=== PATIENT | female | born 1940 | race Caucasian/White ===

== ENCOUNTER → 2024-05-07 08:06 | Outpatient (REF) | payer MEDICARE, SELFPAY | LOC: RCS 08:06 | PROVIDERS: ATTENDING PHYSICIAN Internal Medicine Cardiovascular Disease; FAMILY PHYSICIAN Nurse Practitioner Adult Health | DX: I35.1 Nonrheumatic aortic (valve) insufficiency (principal) | CPT/HCPCS: 93306 ==

== ENCOUNTER 2025-01-02 08:06 | Emergency (ER) | payer MEDICARE, SELFPAY ==
[2025-01-02 08:08] VITALS: BP 167/89
[2025-01-02 08:18] VITALS: BP 140/126
--- NOTE | 2025-01-02 08:53 | ED.GENMED ---
History of Present Illness
General
Chief Complaint: Cardiac Symptoms
Source: patient and records
Exam Limitations: none
Time Seen by Provider: 01/02/25 08:13
Nursing documentation reviewed up to this point in time: agreed with
History of Present Illness
History of Present Illness:
84-year-old female history of CAD status post bypass surgery about 10 years ago permanent pacemaker, presents with left arm pain intermittent for few days somewhat relieved with Tylenol possibly related to doing some gardening, also some right arm
pain this morning, no pain currently no chest pain no shortness of breath did have some pain into her left shoulder and scapula
Has had palpitations a few days ago she did have her pacemaker interrogated by her retort condenser attendant that she was told there was no arrhythmia
Past History
Past History
ED Past Medical History: CAD and Hypercholesterolemia
ED Past Surgical History: Cardiac
Social History
Tobacco: Non-smoker
Alcohol: None
Drug: None
Living: with family
Employment: Employed
Review of Systems
Review of Systems
All Other Systems: Not applicable
Constitutional: Denies fever or fatigue
EENT: Reports no symptoms
Respiratory: Denies cough or trouble breathing
Cardiac: Reports other (Left and right arm pain); Denies chest pain
ABD/GI: Reports no symptoms
: Reports no symptoms
Phy Exam
Physical Exam
Physical Exam:
Physical Exam
General: no apparent distress, not acutely ill
Neck: No jaundice
Heart: s1/s2 regular rate and rhythm, no murmur. equal radial pulses.
Lungs: no acute respiratory distress. clear bilaterally
Abdomen: Nontender
Neuro: alert and oriented. no focal neurological deficits
Skin: no rash
Psychiatric: well kept. interactive and cooperative
Extremities: no edema. no calf tenderness.
Scores
Heart Score for Chest Pain Patients
STEMI patient?: No
History: Slightly or Non-Suspicious
ECG: Nonspecific Repolarization
Age: >/= 65 years
Risk Factors: >/= 3 Risk Factors or History of CAD
Troponin: </= Normal Limit
Heart Score for Chest Pain Patients: 5
Heart Score Risk: 20.3% MACE over next 6 weeks
Course
Orders/Labs/Results
Orders:
Orders
01/02/25 08:11
Electrocardiogram (*1) Urgent
Reason for Study: Bradycardia / Tachycardia
EKG- Treatment ONCE
01/02/25 08:37
CR Chest - 2 Views Urgent
Comment:
Reason For Exam: cad arm pain
01/02/25 08:48
Complete Blood Count/With Diff Urgent
Comprehensive Metabolic Panel Urgent
Lipase Urgent
Magnesium Urgent
NT-proBNP Urgent
Troponin I Urgent
01/02/25 11:15
EKG [Electrocardiogram (*1)] Urgent
Reason for Study: Chest Pain
EKG- Treatment ONCE
01/02/25 11:17
Lipid Profile [Cardiovascular Evaluation] Urgent
TSH Urgent
Troponin I Urgent
Abnormal Lab Results
01/02/25
08:48
Monocytes % 10.9 H %
(1.7-9.3)
Chloride 110 H mmol/L
(98-107)
BUN 24 H mg/dl
(7-17)
Glucose 104 H mg/dl
(70-99)
AST 45 H U/L
(14-36)
ALT 50 H U/L
(0-35)
01/02/25 08:48
01/02/25 08:48
Vital Signs
Initial and Last Documented VS:
Initial Vital Signs
Temp Pulse Resp BP Pulse Ox
98.7 F 85 18 167/89 94
01/02/25 08:08 01/02/25 08:08 01/02/25 08:08 01/02/25 08:08 01/02/25 08:08
Last Documented Vital Signs
Temp Pulse Resp BP Pulse Ox
98.7 F 72 16 134/80 97
01/02/25 08:08 01/02/25 10:45 01/02/25 10:45 01/02/25 09:00 01/02/25 10:45
MDM/Problems Addressed
Differential Diagnosis Includes:
Muscle strain overuse ACS
MDM/Problems Addressed:
Arm pain
Chronic conditions affecting care: CAD
*Radiology
Radiology exam reviewed: radiology read reviewed
*Pulse Oximetry
SaO2: 94
Oxygen Mode of Delivery: Room air
Patient hypoxic: no
*EKG
Interpreted by ED Provider?: Yes
Interpretation: normal
Comparison EKG: no comparison EKG present
Heart Rate: 75
Rate: normal
Rhythm: av sequential
Interval: normal interval
QRS Pattern: normal QRS
Ischemia: non-specific ST changes
*[employer] Judge Interpretation
Rate: normal
Interpretation: normal
Heart Rate: 74
Rhythm: ventricular paced
*Critical Care Note
Total Time (30-74mins, 75-104mins- exclusive of procedures): Not Applicable
Update Note
Update Note:
11:00a- update, patient's symptoms seem atypical for ACS does have a history of CAD undetectable troponin will repeat troponin, have arranged outpatient follow-up with her retort condenser attendant
1230, second troponin remains undetectable
ED Attending Note
-
Portions of this chart may have been created with voice recognition software.� Occasional wrong word or��sound alike� substitutions may have occurred due to the inherent limitations of voice recognition software.
Discharge Plan
Departure
Patient Disposition: Home (Routine Discharge)
Date of Disposition: 01/02/25
Time of Disposition: 12:24
Patient with high blood pressure during this ER visit?: No
Condition: Good
Discharge Problem:
Arm pain
Instructions: Chest Pain CBC Follow Up
Prescriptions:
No Action
atorvastatin 40 MG tablet
40 mg PO HS
apixaban [Eliquis] 5 MG tablet
5 mg PO BID Qty: 0 0RF
Rx Instructions:
HOLD post procedure- OK to resume on 04/23 in PM
Referrals:
UNKNOWN - PT DOES,NOT KNOW [Family Provider]
Jose Krishnamurthy MD [Active, Cardiology] - Next open appointment
Activity Restrictions/Additional Instructions:
Tylenol as needed for pain
Follow-up with retort condenser attendant
Interventions
Interventions:
*Risk Screen - Suicide Last Done: 01/02/25 08:08
*General Assessment Last Done: 01/02/25 08:08
*Neglect/Abuse Screening Last Done: 01/02/25 08:08
Discharge Date and Time
Print Language: AMERICAN
[2025-01-02 09:00] VITALS: BP 134/80
[2025-01-02 09:13] LABS: Hematocrit 39.9 % (37.0-47.0); Hemoglobin 13.7 g/dL (12.0-16.0); Mean Corp Hgb Conc. 34.3 g/dL (33.0-37.0); Mean Corpuscular Volume 87.9 fL (81.0-99.0); Nucleated Red Blood Cells % 0 %; Platelet Count 235 10^3/uL (130-400); Red Cell Dist. Width 13.3 % (11.5-14.5)
[2025-01-02 09:38] LABS: Troponin I < 0.012 ng/ml
[2025-01-02 09:54] LABS: ALT (SGPT) 50 U/L (0-35); AST (SGOT) 45 U/L (14-36); Albumin 3.9 g/dl (3.5-5.0); Alkaline Phosphatase 101 U/L (38-126); Blood Urea Nitrogen 24 mg/dl (7-17); Calcium 9.2 mg/dl (8.4-10.2); Carbon Dioxide 26 mmol/L (22-30); Chloride 110 mmol/L (98-107); Glucose 104 mg/dl (70-99); Magnesium 1.9 mg/dl (1.6-2.3); Potassium 4.2 mmol/L (3.5-5.1); Sodium 140 mmol/L (135-145); Total Protein 6.5 g/dl (6.3-8.2); eGFR > 60.00
[2025-01-02 09:59] LABS: Lipase 174 U/L (23-300)
[2025-01-02 11:00] VITALS: BP 118/69
[2025-01-02 11:35] VITALS: BP 144/71
[2025-01-02 12:00] VITALS: BP 125/71
[2025-01-02 12:01] LABS: HDL Cholesterol 43 mg/dl; LDL Cholesterol, Calculated 67 mg/dl; Very Low Density Lipoprotein 21 mg/dl (0-30)
[2025-01-02 12:18] LABS: Troponin I < 0.012 ng/ml
[2025-01-02 12:36] LABS: TSH 1.60 uIU/ml (0.47-4.68)
== END 2025-01-02 13:22 | disposition home or self-care (01) ==
LOC: EMR 08:06
PROVIDERS: EMERGENCY PHYSICIAN Emergency Medicine
DX: M79.601 Pain in right arm (principal); M79.602 Pain in left arm; E78.00 Pure hypercholesterolemia, unspecified; I25.10 Atherosclerotic heart disease of native coronary artery without angina pectoris; Z95.0 Presence of cardiac pacemaker; Z95.1 Presence of aortocoronary bypass graft
CPT/HCPCS: 99283; 71046; 80053; 80061; 83690; 83735; 83880; 84443; 84484; 85025; 93005